=== PATIENT | female | born 1970 | race Caucasian/White ===

== ENCOUNTER 2023-01-05 09:05 | Emergency (ER) | payer BC ==
[~2023-01-05] VITALS: Ht 154.9 cm; Wt 56.8 kg
[~2023-01-05 09:05] MED LIST: FERR256T PO
[2023-01-05 10:10] VITALS: BP 125/81
== END 2023-01-05 11:08 | disposition home or self-care (01) ==
LOC: ER 09:05
DX: S89.81XA Other specified injuries of right lower leg, initial encounter (principal); J45.909 Unspecified asthma, uncomplicated; F12.90 Cannabis use, unspecified, uncomplicated; Z90.49 Acquired absence of other specified parts of digestive tract; Z98.890 Other specified postprocedural states; Z79.899 Other long term (current) drug therapy; X50.1XXA Overexertion from prolonged static or awkward postures, initial encounter; Y93.89 Activity, other specified; Y92.89 Other specified places as the place of occurrence of the external cause; Y99.8 Other external cause status
CPT/HCPCS: 29505; 73564; 99283